=== PATIENT | female | born 1995 | race Caucasian/White ===

== ENCOUNTER 2016-12-08 05:53 | Emergency (ER) | payer OTHER ==
[~2016-12-08] VITALS: Ht 147.3 cm; Wt 69.0 kg
[~2016-12-08 05:53] MED LIST: ACID CONTROL150 MG PO; ATARAX,VISTARIL25 MG PO; DITROPAN XL5 MG PO; FIORICET,ESG1 TABLET PO; FLEXERIL10 MG PO; FLONASE16 GM NS; FLOVENT; FLOVENT 11120 INHALA IH; FLOVENT DISKUS1 DIS2 IH; FLUOXETINE HCL20 MG PO; FLUTICASONE PRO16 GM BOTH NARES; JUNEL FE 1.5-31 EACH PO; JUNEL1 EAC1 PO; MONTELUKAST SOD10 MG PO; MOTRIN800 MG PO; NAPROXEN500 MG PO; NORCO 5/3251 TABLET PO; PRILOSEC20 MG PO; PROAIR HFA8.5 GM IH; PROZAC10 MG PO; PROZAC40 MG PO; QUETIAPINE FUM100 MG PO; RANITIDINE HCL150 MG PO; RITALIN LA20 MG PO; SEROQUEL XR150 MG PO; SETLAKIN 0.151 EACH PO; SINGULAIR; SINGULAIR10 MG PO; VYVANSE; ZANTAC150 MG PO; ZITHROMAX500 MG PO
[2016-12-08] MEDS ORDERED: ZITHROMAX Z-PA250 MG PO (06:18)
[2016-12-08 07:51] VITALS: BP 136/92
== END 2016-12-08 07:52 | disposition home or self-care (01) ==
LOC: EME 05:53
DX: J20.9 Acute bronchitis, unspecified (principal); J45.909 Unspecified asthma, uncomplicated; K21.9 Gastro-esophageal reflux disease without esophagitis; F90.9 Attention-deficit hyperactivity disorder, unspecified type
CPT/HCPCS: 99281; 99283

== ENCOUNTER 2016-12-12 21:55 | Emergency (ER) | payer OTHER ==
[~2016-12-12] VITALS: Ht 147.3 cm; Wt 67.4 kg
[~2016-12-12 21:55] MED LIST changes: +ZITHROMAX Z-PA250 MG PO
[2016-12-12 21:59] VITALS: BP 120/74
[2016-12-12 22:30] LABS: HEMATOCRIT 42.7 % (36.0-46.0); MCH 27.7 PG (29.0-34.0); MCHC 32.6 G/DL (30.0-36.0); MCV 85.2 FL (83-99); MEAN PLAT.VOLUME 8.9 uM^3 (9.5-12.4); PLATELET COUNT 421 K/uL (156-360); RBC DIS.WIDTH-CV 12.8 % (11.8-14.6); RBC DIS.WIDTH-SD 39.7 % (39-53); RED BLOOD COUNT 5.01 M/uL (3.80-5.20); WHITE BLOOD COUNT 8.1 K/uL (4.1-10.2)
[2016-12-12 22:43] LABS: CHLORIDE 110 mEq/L (99-109); POTASSIUM 4.4 mEq/L (3.7-5.4); SODIUM 142 mEq/L (136-147)
[2016-12-12 22:45] LABS: GLUCOSE 81 mg/dL (70-99)
[2016-12-12 22:46] LABS: ANION GAP 8 MEQ/L (2-14)
[2016-12-12 22:49] LABS: GFR ESTIMATE (CALCULATED) > 59 mL/min/
[2016-12-12 22:50] LABS: UREA NITROGEN (BUN) 18 mg/dL (9-23)
[2016-12-12 22:51] LABS: TROP-I INTERPRETATION NEGATIVE; TROPONIN-I < 0.01 ng/mL (0.0-0.30)
== END 2016-12-13 00:25 | disposition left against medical advice (07) ==
LOC: EME 21:55
DX: R07.9 Chest pain, unspecified (principal); J45.909 Unspecified asthma, uncomplicated; K21.9 Gastro-esophageal reflux disease without esophagitis; F31.9 Bipolar disorder, unspecified; F90.9 Attention-deficit hyperactivity disorder, unspecified type
CPT/HCPCS: 71020; 80048; 84484; 85027; 93005

== ENCOUNTER 2017-04-15 00:13 | Emergency (ER) | payer OTHER ==
[~2017-04-15] VITALS: Ht 147.3 cm; Wt 67.7 kg
[2017-04-15 00:49] LABS: ADD MIUA? YES; BILIRUBIN NEGATIVE; BLOOD LARGE; COLOR YELLOW ((YELLOW)); GLUCOSE (STRIP) NEGATIVE; KETONES NEGATIVE; LEUKOCYTES MODERATE; NITRITE NEGATIVE; PROTEIN (STRIP) 30; SPECIFIC GRAVITY 1.014 (1.000-1.030); UROBILINOGEN 0.2 MG/DL (0.2-1.0)
[2017-04-15 00:50] LABS: INTERNAL CONTROL VALID? YES
[2017-04-15 00:56] LABS: BACTERIA RARE /HPF; EPITHELIAL CELLS 1+ /HPF; MUCUS TRACE /LPF; UCUL ADDED? YES; WHITE BLOOD CELLS TNTC /HPF (0-5)
[2017-04-15] MEDS ORDERED: LEVAQUIN750 MG PO (01:29)
[2017-04-15 01:38] VITALS: BP 122/76
== END 2017-04-15 01:41 | disposition home or self-care (01) ==
LOC: EME 00:13
DX: N12 Tubulo-interstitial nephritis, not specified as acute or chronic (principal); Z87.440 Personal history of urinary (tract) infections; J45.909 Unspecified asthma, uncomplicated; K21.9 Gastro-esophageal reflux disease without esophagitis; F90.9 Attention-deficit hyperactivity disorder, unspecified type; F32.9 Major depressive disorder, single episode, unspecified; Z88.0 Allergy status to penicillin
CPT/HCPCS: 81003; 84703; 87077; 87086; 87186; 99281; 99283